=== PATIENT | female | born 1960 | race Caucasian/White ===

== ENCOUNTER 2016-11-17 11:40 | Emergency (ER) | payer SELFPAY ==
[~2016-11-17] VITALS: Ht 160 cm; Wt 92.0 kg
[~2016-11-17 11:40] MED LIST: ALBU0.086 NEB; ALBU1AER INH; BENZ100 PO; CLAR10TA13 PO; FLUN25I; MUCI600T PO; PRED20 PO
[2016-11-17 11:52] VITALS: BP 110/60; PULSE 87; RESP 16; TEMP 97.9; O2SAT 97
[2016-11-17] MEDS ORDERED: RESP: BUDESONIDE 0.5 MG/2 ML NEB NEB ONE (12:00)
[2016-11-17] MEDS ORDERED: methylPREDNISolone SOD SUCC 125 MG/2 ML VIAL IM ONE (12:00)
[2016-11-17] MEDS ORDERED: ALBU6.7H INH (12:00)
[2016-11-17] MEDS ORDERED: IPRASOL INH (12:00)
[2016-11-17] MEDS: RESP: ALBUTEROL 2.5 MG/IPRATROPIUM 0.5 MG NEB (SCH) INH ×2 (12:09→12:11)
--- NOTE | 2016-11-17 12:17 | PD ---
HPI Chief Complaint: Respiratory Symptoms Time Seen by Provider: 12:00 Travel History International Travel<30 days: No Contact w/Intl Traveler<30days: No Traveled to known affect area: No History of Present Illness HPI Patient is a 56-year-old female who presents emergency for evaluation of a cough and chest congestion. Patient states her symptoms have been ongoing for approximately 2 months. She denies any fever, chills, nausea, vomiting, headache, shortness of breath. She does endorse a history of asthma and has been out of her inhalers and nebulizers for some time. She is attempting to establish with a clinic but does not have a primary doctor at this time. She does not use tobacco products. She has a remote history of tobacco use at age 16. PFSH Past Medical History Asthma: Yes Anxiety: Yes Depression: Yes Heart Rhythm Problems: No Cardiac Catheterization: No Cardiovascular Problems: No High Cholesterol: No Congestive Heart Failure: No Diabetes: No Diminished Hearing: No Gastrointestinal Disorders: Yes (LESION IN HER LIVER- TOLD IT WAS BENIGN) Hypertension: No Musculoskeletal: Yes (CHRONIC SCIATICA ) Immunizations Current: Yes Pneumonia: Yes PNEUMOCCOCAL Vaccine (Year): 3 ?: Not Menopausal: Yes : 7 Para: 4 Miscarriage: 3 Past Surgical History Section: Yes (X4) Coronary Artery Bypass Graft: No Hysterectomy: Yes Other Surgery: Yes (BREAST AUGMENTATION) Family History Family Myocardial Infarction: Yes (FATHER GOT A VALVE) Social History Alcohol Use: Yes (OCC.) Tobacco Use: No Substance Use: No (DENIES) Allergies-Medications (Allergen,Severity, Reaction): Coded Allergies: Dust (Verified Allergy, Severe, Wheezing, 11/17/16) Pollen Extract (Verified Allergy, Severe, Wheezing, 11/17/16) Sulfa (Verified Allergy, Severe, Anaphylaxis, 11/17/16) Reported Meds & Prescriptions Reported Meds & Active Scripts Active Reported Duoneb (Ipratropium-Albuterol Neb) 0.5-2.5 Mg/3 Ml Neb 1 Nebule INH DAILY Proventil Hfa 6.7 GM Inh (Albuterol Sulfate) 90 Mcg/Act Aer 1 Puff INH Q4H PRN Review of Systems Except as stated in HPI: all other systems reviewed are Neg HENT: No: Headaches Cardiovascular: No: Chest Pain or Discomfort Respiratory: Positive: Cough, Wheezing Gastrointestinal: No: Nausea, Abdominal Pain Musculoskeletal: No: Myalgias Physical Exam Narrative GENERAL: Well-nourished, well-developed patient. SKIN: Warm and dry. HEAD: Normocephalic. EYES: No scleral icterus. No injection or drainage. NECK: Supple, trachea midline. No JVD or lymphadenopathy. CARDIOVASCULAR: Regular rate and rhythm without murmurs, gallops, or rubs. RESPIRATORY: Breath sounds equal bilaterally, expiratory wheezing noted throughout lung enriquez. No increased work of breathing noted, no nasal flaring , no retractions. GASTROINTESTINAL: Abdomen soft, non-tender, nondistended. MUSCULOSKELETAL: No cyanosis, or edema. BACK: Nontender without obvious deformity. No CVA tenderness. Data Data Last Documented VS Vital Signs Date Time Temp Pulse Resp B/P Pulse Ox O2 Delivery O2 Flow Rate FiO2 11/17/16 11:52 97.9 87 16 110/60 97 Orders Chest, Pa & Lat (11/17/16 11:59) Methylprednisolone So Succ Inj (Solumedr (11/17/16 12:00) Albuterol-Ipratropium Neb (Duoneb Neb) (11/17/16 12:00) Budesonide Neb (Pulmicort Respule Neb) (11/17/16 12:00) MDM Medical Decision Making Medical Screen Exam Complete: Yes Emergency Medical Condition: Yes Interpretation(s) Vital Signs Date Time Temp Pulse Resp B/P Pulse Ox O2 Delivery O2 Flow Rate FiO2 11/17/16 11:52 97.9 87 16 110/60 97 Differential Diagnosis Asthma exacerbation versus pneumonia versus bronchitis versus COPD versus viral URI versus other Narrative Course Patient is a 56-year-old female who presented to her chart for evaluation of a cough that has been ongoing for approximately 2 months. Patient is out of her inhalers. Physical examination revealed expiratory wheezing noted throughout lung enriquez. Chest x-ray, Solu-Medrol, DuoNeb and budesonide ordered. Stable, she is afebrile. She does report completing a Z-Mark on Sunday with improvement in her symptoms. Lung sounds are markedly improved after administration of nebulizer treatments. Patient will be provided with prescriptions for home medications. She is encouraged to establish care with a primary doctor at [facility]. She was encouraged to return to emergency department for any new or worsening symptoms. Patient verbalized understanding of instructions. Patient stable for discharge. Diagnosis Primary Impression: Asthma exacerbation Referrals: [facility] Primary Care Physician Patient Instructions: Asthma (ED), General Instructions Additional Instructions: Follow-up with your primary doctor Return to emergency department for any new or worsening symptoms Use medications as directed Med/Other Pt SpecificInfo: Prescription(s) given Scripts Prednisone 50 Mg Tab50 Mg PO DAILY #5 TAB Ref 0 Prov:Rachael Quezada 11/17/16 Montelukast (Singulair)10 Mg Tab10 Mg PO HS #30 TAB Ref 0 Prov:Rachael Quezada 11/17/16 Budesonide Neb 0.5 Mg/2 Ml Neb0.5 Mg NEB DAILY NEB 30 Days Ref 0 Prov:Rachael Quezada 11/17/16 Albuterol 18 GM Inh (Ventolin Hfa 18 GM Inh)90 Mcg/Act Aer2 Puff INH Q4-6H PRN ( SHORTNESS OF BREATH) #1 INHALER Ref 0 Prov:Rachael Quezada 11/17/16 Albuterol Neb 2.5 Mg/3 Ml Neb2.5 Mg NEB Q4HR NEB PRN (SHORTNESS OF BREATH) 30 Days Ref 0 Prov:Rachael Quezada 11/17/16 Disposition: 01 DISCHARGE HOME Condition: Stable Rachael Quezada Nov 17, 2016 12:17
--- NOTE | 2016-11-17 12:56 | RADHPO ---
EXAM DATE/TIME: 11/17/2016 12:31 [facility] COMPARISON: CHEST PA & LAT, February 21, 2015, 10:39. INDICATIONS : Short of breath MEDICAL HISTORY : Asthma SURGICAL HISTORY : None. ENCOUNTER: Initial ACUITY: 2 months PAIN SCORE: 0/10 LOCATION: Bilateral chest FINDINGS: PA and lateral views of the chest demonstrate the lungs to be symmetrically aerated without evidence of mass, infiltrate or effusion. The cardiomediastinal contours are unremarkable. Osseous structure s are intact. CONCLUSION: No acute disease. Valentin Kapoor MD FACR on November 17, 2016 at 12:55 Board Certified Radiologist. This report was verified electronically.
[2016-11-17] MEDS ORDERED: MONT10TA2 PO (13:24)
[2016-11-17] MEDS ORDERED: VENTAER INH (13:24)
[2016-11-17] MEDS ORDERED: ALBU0.08 NEB (13:24)
[2016-11-17] MEDS ORDERED: BUDE0.5S NEB (13:24)
[2016-11-17] MEDS ORDERED: PRED50 PO (13:24)
== END 2016-11-17 13:36 | disposition home or self-care (01) ==
LOC: PHEFT 11:40
DX: J45.901 Unspecified asthma with (acute) exacerbation (principal); R09.89 Other specified symptoms and signs involving the circulatory and respiratory systems
CPT/HCPCS: 71020; 94640; 94664; 96372; 99283; J2930; J7626

== ENCOUNTER 2017-01-04 12:08 | Emergency (ER) | payer OTHER ==
[~2017-01-04] VITALS: Ht 160 cm; Wt 91.5 kg
[~2017-01-04 12:08] MED LIST changes: +ALBU0.08 NEB; -ALBU0.086 NEB; -ALBU1AER INH; +ALBU6.7H INH; -BENZ100 PO; +BUDE0.5S NEB; -CLAR10TA13 PO; -FLUN25I; +IPRASOL INH; +MONT10TA2 PO; -MUCI600T PO; -PRED20 PO; +PRED50 PO; +VENTAER INH
[2017-01-04 12:41] VITALS: BP 116/57; PULSE 84; RESP 18; TEMP 99; O2SAT 96
[2017-01-04] MEDS ORDERED: PRED50 PO (13:51)
--- NOTE | 2017-01-04 13:53 | PD ---
HPI . cough for 1 day Chief Complaint: Cold / Flu Symptoms Time Seen by Provider: 13:51 Travel History International Travel<30 days: No Contact w/Intl Traveler<30days: No Traveled to known affect area: No History of Present Illness HPI 56-year-old female here complaining of coughing for one day. Patient does have a history of asthma and decided to come in early. She was seen in November with similar issues and given medications, but her cough seems to be persisting through using inhalers. She was told to establish at the [facility] and apparently there was some issues with her obtaining proper documentation from her previous employers and she has not yet been approved. She tells me she should be able to establish the clinic in the next few months. She thinks she may have had a fever. At this present time her vital signs are stable. She denies any sore throat, congestion, or rhinorrhea. PFSH Past Medical History Asthma: Yes Anxiety: Yes Depression: Yes Heart Rhythm Problems: No Cardiac Catheterization: No Cardiovascular Problems: No High Cholesterol: No Congestive Heart Failure: No Diabetes: No Diminished Hearing: No Gastrointestinal Disorders: Yes (LESION IN HER LIVER- TOLD IT WAS BENIGN) Hypertension: No Musculoskeletal: Yes (CHRONIC SCIATICA ) Immunizations Current: Yes Pneumonia: Yes PNEUMOCCOCAL Vaccine (Year): 3 ?: Not Menopausal: Yes : 7 Para: 4 Miscarriage: 3 Past Surgical History Section: Yes (X4) Coronary Artery Bypass Graft: No Hysterectomy: Yes Other Surgery: Yes (BREAST AUGMENTATION) Social History Alcohol Use: Yes (OCC.) Tobacco Use: No Substance Use: No (DENIES) Allergies-Medications (Allergen,Severity, Reaction): Coded Allergies: Dust (Verified Allergy, Severe, Wheezing, 01/04/17) Pollen Extract (Verified Allergy, Severe, Wheezing, 01/04/17) Sulfa (Verified Allergy, Severe, Anaphylaxis, 01/04/17) Reported Meds & Prescriptions Reported Meds & Active Scripts Active Prednisone 50 Mg Tab 50 Mg PO DAILY Ventolin Hfa 18 GM Inh (Albuterol Sulfate) 90 Mcg/Act Aer 2 Puff INH Q4-6H PRN Albuterol Neb (Albuterol Sulfate) 2.5 Mg/3 Ml Neb 2.5 Mg NEB Q4HR NEB PRN 30 Days Reported Proventil Hfa 6.7 GM Inh (Albuterol Sulfate) 90 Mcg/Act Aer 1 Puff INH Q4H PRN Review of Systems General / Constitutional: No: Fever Eyes: No: Visual changes HENT: No: Headaches Cardiovascular: No: Chest Pain or Discomfort Respiratory: Positive: Cough, No: Shortness of Breath, Wheezing Gastrointestinal: No: Abdominal Pain Genitourinary: No: Dysuria Musculoskeletal: No: Pain Skin: No Rash Neurologic: No: Weakness Psychiatric: No: Depression Endocrine: No: Polydipsia Hematologic/Lymphatic: No: Easy Bruising Physical Exam Narrative GENERAL: AAO x 3, no acute distress, Well-nourished, well-developed patient. SKIN: Warm and dry. No visible rashes or bruising. HEAD: Normocephalic and atraumatic. EYES: No scleral icterus. No injection or drainage. ENT: No nasal drainage noted. Mucous membranes pink. Airway patent. No posterior or varus erythema, edema or exudates. TMs with fluid bubbles. NECK: Supple, trachea midline. No JVD. CARDIOVASCULAR: Regular rate and rhythm without murmurs, gallops, or rubs. RESPIRATORY: Breath sounds equally diminished bilaterally. No accessory muscle use. No rhonchi or rales. Mild wheeze. Dry cough heard throughout examination GASTROINTESTINAL: Visual inspection normal EXTREMITIES: No cyanosis or edema. BACK: Nontender without obvious deformity. No CVA tenderness. PSYCH: AAO x 3, normal affect. Data Data Last Documented VS Vital Signs Date Time Temp Pulse Resp B/P Pulse Ox O2 Delivery O2 Flow Rate FiO2 01/04/17 13:56 18 96 Room Air 01/04/17 12:41 99.0 84 116/57 MDM Medical Decision Making Medical Screen Exam Complete: Yes Emergency Medical Condition: Yes Medical Record Reviewed: Yes Differential Diagnosis Bronchitis, asthma exacerbation, less likely pneumonia, less likely influenza Narrative Course 56-year-old female here complaining of coughing for one day. Patient does have a history of asthma and decided to come in early. She was seen in November with similar issues and given medications, but her cough seems to be persisting through using inhalers. She was told to establish at the [facility] and apparently there was some issues with her obtaining proper documentation from her previous employers and she has not yet been approved. She tells me she should be able to establish the clinic in the next few months. She thinks she may have had a fever. At this present time her vital signs are stable. She denies any sore throat, congestion, or rhinorrhea. Patient seen and examined. She seems to have a bronchitis. She is not having an acute exacerbation of asthma. She has been advised to continue her home medications. I provided her short course of prednisone. She will need to follow-up with a primary care doctor for an asthma action plan. She will need some type of maintenance medication. Discussed this with her. Patient verbalized understanding of instructions, questions were answered, and thanked me for their care. I advised them if their condition worsens, please return to the nearest emergency room for further care. Diagnosis Primary Impression: Asthmatic bronchitis Qualified Code: J45.20 - Asthmatic bronchitis, mild intermittent, uncomplicated Additional Impression: Allergic rhinitis Qualified Code: J30.1 - Seasonal allergic rhinitis due to pollen Patient Instructions: General Instructions Additional Instructions: As we discussed the cough can last 6-8 weeks. Take medications as prescribed. If you are a smoker, try to quit. Follow up with your primary care provider. If you develop sudden onset or worsening of shortness or breath, please go to the nearest emergency room. As we discussed, please follow-up [facility]. You will need to be placed on a medication for asthma maintenance Try an over the counter antihistamine such as claritin or zyrtec daily. Med/Other Pt SpecificInfo: Prescription(s) given Disposition: 01 DISCHARGE HOME Condition: Stable Anaid Daugherty Jan 04, 2017 13:53
== END 2017-01-04 14:15 | disposition home or self-care (01) ==
LOC: PHED 12:08 → PHEFT 14:15
DX: J45.20 Mild intermittent asthma, uncomplicated (principal); J30.1 Allergic rhinitis due to pollen
CPT/HCPCS: 99283

== ENCOUNTER 2017-10-20 11:26 | Emergency (ER) | payer OTHER ==
[~2017-10-20] VITALS: Ht 160 cm; Wt 96.0 kg
[~2017-10-20 11:26] MED LIST changes: -BUDE0.5S NEB; -IPRASOL INH; -MONT10TA2 PO
[2017-10-20 11:47] VITALS: BP 150/72; PULSE 85; RESP 16; TEMP 98; O2SAT 96
[2017-10-20] MEDS ORDERED: HYDR-3516 PO (11:58)
[2017-10-20] MEDS ORDERED: CETI10 PO (11:58)
[2017-10-20] MEDS ORDERED: CYCLOBENZAPRINE HCL 10 MG TAB PO ONE (12:30)
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
--- NOTE | 2017-10-20 13:37 | RADRPT ---
EXAM DATE/TIME: 10/20/2017 12:44 [facility] COMPARISON: CHEST PA & LAT, November 17, 2016, 12:31. INDICATIONS : Rib pain. MEDICAL HISTORY : None. SURGICAL HISTORY : None. ENCOUNTER: Initial ACUITY: 2 days PAIN SCORE: 3/10 LOCATION: Bilateral chest FINDINGS: The cardiac silhouette is enlarged in transverse diameter. There is parenchymal scarring bilaterally. There is no evidence of pneumonia. There is no evidence of acute fracture. CONCLUSION: 1. Cardiomegaly. No acute pulmonary disease. Jersey Mcneal MD on October 20, 2017 at 13:34 Board Certified Radiologist. This report was verified electronically.
--- NOTE | 2017-10-20 13:38 | RADRPT ---
EXAM DATE/TIME: 10/20/2017 12:44 [facility] COMPARISON: No previous studies available for comparison. INDICATIONS : Head injury. MEDICAL HISTORY : None. SURGICAL HISTORY : None. ENCOUNTER: Initial ACUITY: 1 day PAIN SCORE: 8/10 LOCATION: Left Zygoma. FINDINGS: Multiple views of the facial bones demonstrate no evidence of fracture. The nasal bone is intact. T he zygomatic arches are intact. The infraorbital rim is intact. The maxillary sinus is clear withou t air fluid level. No radiopaque foreign bodies are seen. CONCLUSION: 1. Negative examination of the facial bones. Jersey Mcneal MD on October 20, 2017 at 13:35 Board Certified Radiologist. This report was verified electronically.
[2017-10-20] MEDS ORDERED: CYCL10TA PO (13:45)
[2017-10-20] MEDS ORDERED: IBUP1TAB7 PO (13:45)
== END 2017-10-20 14:01 | disposition home or self-care (01) ==
LOC: PHEFT 11:26
DX: S00.83XA Contusion of other part of head, initial encounter (principal); R07.81 Pleurodynia; W01.198A Fall on same level from slipping, tripping and stumbling with subsequent striking against other object, initial encounter; J45.909 Unspecified asthma, uncomplicated; F41.9 Anxiety disorder, unspecified; F32.9 Major depressive disorder, single episode, unspecified; F12.90 Cannabis use, unspecified, uncomplicated
CPT/HCPCS: 70150; 71046; 99284